=== PATIENT | male | born 1955 | race Caucasian/White ===

== ENCOUNTER 2023-01-10 10:42 | Emergency (ER) | payer MEDICARE, SELFPAY ==
[2023-01-10 10:51] VITALS: BP 139/77; PULSE 70; RESP 14; TEMP 36.6; O2SAT 98
--- NOTE | 2023-01-10 10:55 | ED.SKABFB ---
HPI - Skin/Abscess/Foreign Bdy General Chief complaint: Wound/Laceration Stated complaint: Laceration to Finger Source: patient and RN notes reviewed History of Present Illness HPI narrative: 67 yo M presents to urgent care with complaints of a laceration to his right middle finger tip. Pt states he takes Eliquis and it won't stop bleeding. Pt states around 0700 today, he was at [employer], digging for a frozen food when a defective metal shelf cut his finger. Pt denies any numbness or tingling. Pt is unsure on his last Tdap. Related Data Home Medications Medication Instructions Recorded Confirmed apixaban 5 mg tablet (Eliquis) 5 mg PO BID 01/10/23 01/10/23 carvedilol 6.25 mg tablet 6.25 mg PO BID 01/10/23 01/10/23 oxycodone-acetaminophen 5 mg-325 See Rx Instructions .Route 01/10/23 01/10/23 mg tablet .COMPLEX PRN Pain rosuvastatin 40 mg tablet 40 mg PO DAILY 01/10/23 01/10/23 Allergies Allergy/AdvReac Type Severity Reaction Status Date / Time No Known Allergies Allergy Unverified 01/10/23 11:09 Review of Systems Review of Systems: CONSTITUTIONAL: Denies fever, chills, or sweats. EYES: Denies visual changes, redness, or discharge. ENT: Denies otalgia and sore throat CARDIOVASCULAR: Denies chest pain, palpitations, or edema. RESPIRATORY: Denies cough or dyspnea. GASTROINTESTINAL: Denies abdominal pain, nausea, vomiting, or diarrhea. GENITOURINARY: Denies dysuria or hematuria. SKIN: right middle finger laceration MUSCULOSKELETAL: Denies back pain, joint pain, or myalgia. NEUROLOGIC: Denies headache, numbness, or weakness. Pertinent positives per HPI. PMFSH Comments At the time of my signature, I reviewed and agree with the nursing past medical, surgical, social, and family history. There is no relevant family history pertinent to the patient complaint. Exam Narrative: GENERAL: This is a well-nourished, well-developed patient, in no apparent distress. HEAD: normocephalic, atraumatic. EYES: Sclera clear/white. Vision is grossly intact. EARS: External ears normal, auditory canals clear and without drainage. Hearing grossly intact. NOSE: External nose normal with no obvious nasal discharge, nares without redness, no rhinorrhea. THROAT: Mucous membranes moist, posterior pharynx clear. NECK: Neck supple, non-tender without lymphadenopathy, masses or thyromegaly. CARDIOVASCULAR: Regular rate RESPIRATORY:No respiraotry distress SKIN: 1 cm laceration to right middle finger tip, approximately 3-5 mm in depth. not bleeding during exam NEURO: awake, alert, and oriented to person, place and time. There were no obvious focal neurologic abnormalities. EXTREMITIES: No clubbing, cyanosis, or edema. No joint tenderness, effusion, or edema noted. Course Course Level of Care: Express Care Visit Vital Signs Vital signs: Vital Signs Temperature 98 F 01/10/23 10:51 Pulse Rate 70 01/10/23 10:51 Respiratory Rate 14 01/10/23 10:51 Blood Pressure 139/77 01/10/23 10:51 Pulse Oximetry 98 01/10/23 10:51 Oxygen Delivery Room Air 01/10/23 10:51 Temperature 98 F 01/10/23 10:51 Pulse Rate 70 01/10/23 10:51 Respiratory Rate 14 01/10/23 10:51 Blood Pressure 139/77 01/10/23 10:51 Pulse Oximetry 98 01/10/23 10:51 Oxygen Delivery Room Air 01/10/23 10:51 Reviewed Procedures Laceration Laceration 1: Date: 01/10/23 Time: 11:18 Site: upper extremity (middle finger tip) Side (If applicable): right Size (cm): 1 Description: linear and clean Depth: simple, single layer Local Anesthetic: none Pre-repair: wound explored and irrigated ====== Skin Level ====== Skin layer closed with: dermabond ====== Subcutaneous Layer ====== ====== Muscle Layer ====== ====== Tendon Layer ====== Dressing: The procedure was explained and verbal consent obtained. The area of the laceration was prepped with
[2023-01-10] MEDS: TETANUS,DIPHTHERIA,AC PERTUSSIS ADULT (0.5 ML) BOOSTRIX IM (11:10)
== END 2023-01-10 11:30 | disposition home or self-care (01) ==
PROVIDERS: Emergency Provider Nurse Practitioner Family
DX: S61.212A Laceration without foreign body of right middle finger without damage to nail, initial encounter (principal); Z79.01 Long term (current) use of anticoagulants; Z79.891 Long term (current) use of opiate analgesic; Z79.899 Other long term (current) drug therapy; Z23 Encounter for immunization; W26.8XXA Contact with other sharp object(s), not elsewhere classified, initial encounter; Y92.512 Supermarket, store or market as the place of occurrence of the external cause
CPT/HCPCS: 12001; 90715; 99212; G0463